=== PATIENT | male | born 1980 | race African-American/Black ===

== ENCOUNTER 2025-04-08 18:29 | Emergency (ER) | payer BC ==
[~2025-04-08] VITALS: Ht 172.7 cm; Wt 99.8 kg
[2025-04-08 19:24] VITALS: O2SAT 94
[2025-04-08] MEDS: IPRATROPIUM NEB FS 0.5 MG/2.5 ML AMPUL.NEB NEB ONE ×2 (19:24→20:16)
[2025-04-08] MEDS: ALBUTEROL FS 2.5 MG/3 ML VIAL.NEB NEB ONE ×2 (19:24→20:16)
[2025-04-08] MEDS ORDERED: IPRATROPIUM NEB FS 0.5 MG/2.5 ML AMPUL.NEB ONE (19:25)
[2025-04-08] MEDS ORDERED: ALBUTEROL FS 2.5 MG/3 ML VIAL.NEB ONE (19:25)
[2025-04-08 19:34] VITALS: O2SAT 99
[2025-04-08] MEDS ORDERED: ALBU8.5H8 INH (20:17)
[2025-04-08] MEDS ORDERED: PRED50TA PO (20:17)
[2025-04-08 22:46] VITALS: BP 112/89; TEMP 98.1; O2SAT 99
== END 2025-04-08 22:46 | disposition home or self-care (01) ==
LOC: ER 18:34
DX: J44.1 Chronic obstructive pulmonary disease with (acute) exacerbation (principal); F17.200 Nicotine dependence, unspecified, uncomplicated; I50.9 Heart failure, unspecified; Z88.2 Allergy status to sulfonamides; Z88.1 Allergy status to other antibiotic agents; Z79.52 Long term (current) use of systemic steroids
CPT/HCPCS: 99283; 71045; 93005 ×2; 94640; J7512